=== PATIENT | male | born 1945 | race Caucasian/White ===

== ENCOUNTER 2017-02-04 11:11 | Emergency (ER) | payer MEDICARE, OTHER ==
[~2017-02-04] VITALS: Ht 180.3 cm; Wt 122.5 kg
[2017-02-04] MEDS ORDERED: SODIUM CHLORIDE IR ONE (11:21)
[2017-02-04] MEDS ORDERED: LIDOCAINE 1% VIAL ONE (11:24)
--- NOTE | 2017-02-04 11:31 | NUR ---
arrival patient to er room 8 via pov with complaints of injury and laceration to middle, ring and pinky finger of right hand
--- NOTE | 2017-02-04 11:33 | NUR ---
dr jason gomez at bedside suturing
[2017-02-04] MEDS ORDERED: KEFLEX PO STA (12:17)
--- NOTE | 2017-02-04 12:18 | NUR ---
sutures sutures to right pinky x17 steri strips x3 to right index finger
[2017-02-04] MEDS ORDERED: KEFLEX PO ONE (12:21)
[2017-02-04] MEDS ORDERED: TETANUS DIPHTHERIA TOXOIDS IM ONE (12:21)
--- NOTE | 2017-02-04 12:25 | ER.PDOC ---
General Chief Complaint: Extremities Stated Complaint: RIGHT HAND INJURY, W/LACERATION TO THREE LAST FING Time seen by MD: 12:18 Source: patient Exam Limitations: no limitations History of Present Illness Occurred: this morning Where: home Severity: severe Associated Symptoms: tingling, numbness distally Modifying Factors: pain on movement Past Medical History Medical History: asthma, hypertension, other Surgical History: no surgical history Social History Smoking: non-smoker Alcohol Use: occassionally Reviewed Nursing Reviewed: Vital Signs, Abn. Noted, Nursing Assessment Review of Systems Musculoskeletal: see HPI, joint pain, joint swelling Skin: no symptoms reported, see HPI, lesions All Other Systems: Reviewed and Negative Physical Exam General Appearance: Moderate Distress Hand: tenderness, swelling, deformity Wrist: nml inspection, non-tender, nml ROM Forearm/Elbow: nml inspection, non-tender, nml ROM Arm/Shoulder: nml inspection, non-tender, nml ROM Neuro/Vasc/Tendon: sensation nml, motor nml, no vascular compromise, tendon function nml Skin: warm/dry Head/ENT: nml inspection, pharynx nml Neck/Back: nml inspection, non-tender Respiratory: chest non-tender, breath sounds nml CVS: heart sounds normal Abdomen: non-tender, no organomegaly Comments Right proximal 5th finger lacerations times 2, 4 cm in length betwen the two, 16 sutures placed in the two with good approximation of the wound. Copious hemorrhage at first, then well controlled with wound closure. Good neurologic function, motor and sensory, good hemostasis after closure. Anesthesia with Lido 1%, 12 ml injected to wound. Cleaned wound with Betadine and NS with no foreign bodies in wound. Cleaned thoroughly. Placed tube gauze dressing over wounds. No further bleeding. Right middle finger skin tear, closed with 1/4 inch steri strips with good closure of wound, no bleeding, good motor and sensory function of middle finger. Recommend changing dressing daily, take Keflex 500 mg 4 times daily for 5 days, Ultracet as needed for pain, and Bacitracin ointment to wound daily. Recommend returning to ED immediately if wound seems to be getting infected such as drainage, redness, severe pain, or swelling with redness. Laceration/Wound Repair Laceration/Wound Repair : Wound Location: right 5th finger, 2 lacerations Wound Length (cm): 4 Wound cleaned: betadine Distal NVT: neuro intact Anesthesia type: local Anesthesia: 1% Lidocaine Volume Anesthetic (ccs): 12 Wound's Depth, Shape: flap, irregular Irrigated w/ Saline (ccs): 15 Wound Explored: clean Tendon Intact: Yes Wound Debrided: moderate Wound Repaired With: sutures Suture Size/Type: 4:0, prolene Suture Style: running Number of Sutures: 16 Layer Closure?: No Retention sutures placed: No Nail/Nail Matrix: nail excised Sterile Dressing Applied?: Yes Splint Applied?: Yes Type of Splint Applied: straight plastic under 5th finger Sling Applied?: No Departure Time of Disposition: 12:28 Disposition: 01 HOME, SELF-CARE Impression: Primary Impression: Laceration of finger of right hand without foreign body Qualified Codes: S61.216A - Laceration without foreign body of right little finger without damage to nail, initial encounter Additional Impression: Laceration of finger of right hand without damage to nail Qualified Codes: S61.216A - Laceration without foreign body of right little finger without damage to nail, initial encounter Condition: Stable Referrals: PCP,UNKNOWN (PCP) PRIMARY CARE PROVIDER CY GILL MD Feb 04, 2017 12:25
[2017-02-04] MEDS ORDERED: BOOSTRIX VACCINE SYRINGE IM ONE (12:30)
[2017-02-04 12:49] VITALS: BP 192/99
== END 2017-02-04 12:47 | disposition home or self-care (01) ==
LOC: ER 11:11
DX: S61.216A Laceration without foreign body of right little finger without damage to nail, initial encounter (principal); I10 Essential (primary) hypertension; J45.909 Unspecified asthma, uncomplicated; X58.XXXA Exposure to other specified factors, initial encounter; Y93.89 Activity, other specified; Y92.89 Other specified places as the place of occurrence of the external cause; Y99.8 Other external cause status
CPT/HCPCS: 12002; 90471; 90714; 99283; J2001; J7030